=== PATIENT | female | born 1945 | race Asian ===

== ENCOUNTER 2016-03-16 15:30 | Emergency (ER) | payer MEDICARE, MEDICAID ==
[~2016-03-16] VITALS: Ht 152.4 cm; Wt 55.5 kg
[~2016-03-16 15:30] MED LIST: ASPI-556 PO; MULT1TAB PO
[2016-03-16 18:53] VITALS: BP 137/78
== END 2016-03-16 18:54 | disposition home or self-care (01) ==
LOC: EMS 15:32
DX: J20.9 Acute bronchitis, unspecified (principal); J02.9 Acute pharyngitis, unspecified; Z79.82 Long term (current) use of aspirin
CPT/HCPCS: 99283